=== PATIENT | female | born 1930 | race Caucasian/White ===

== ENCOUNTER → 2016-10-16 10:01 | Outpatient (CLI) | payer MEDICARE, OTHER ==
[2014-09-04 16:39] VITALS: BMI 26.1
[~2016-10-16 10:01] MED LIST: ACETAMINOPHEN325 MG PO; ACIDOPHILUS LAC1 CAP OR; ASCORBIC ACID500 MG PO; ATIVAN0.5 MG PO; CALTRATE 600 M600 M1 PO; CRANBERRY475 MG OR; LOTENSIN40 MG PO; LUTEIN20 MG PO; MECLIZINE HCL25 MG PO; METAMUCIL PACKE1 PKT PO; MIRALAX17 GM PO; MULTIPLE VITAMI1 TA1 PO; PRILOSEC20 MG PO; PROTONIX40 MG PO; SYNTHROID75 MCG PO; VITAMIN D2000 UNIT PO; VYTORIN 10-40 M1 TAB PO; ZETIA10 MG PO; ZOCOR40 MG PO
== END | disposition home or self-care (01) ==
LOC: D.CT 10:00
DX: R19.7 Diarrhea, unspecified (principal); K92.1 Melena

== ENCOUNTER 2016-10-28 07:50 | Day surgery (SDC) | payer MEDICARE, OTHER ==
[~2016-10-28] VITALS: Ht 162.6 cm; Wt 66.8 kg
[2016-10-28] MEDS ORDERED: SYNTHROID112 MCG PO (08:23)
[2016-10-28] MEDS ORDERED: ZESTRIL40 MG PO (08:24)
[2016-10-28] MEDS ORDERED: ZOCOR40 MG PO (08:24)
[2016-10-28 08:28] VITALS: BP 153/79; Ht 162.6 cm; Wt 66.8 kg
[2016-10-28 08:41] LABS: BASOPHILS 0.4 % (0-2); EOSINOPHILS 1.6 % (0-7); HEMATOCRIT 39.2 % (36.0-48.0); HEMOGLOBIN 12.6 g/dL (12-16); IMMATURE GRANULOCYTES 0.3 % (0-5); LYMPHOCYTES 17.6 % (15-50); MCH 28.1 pg (26.0-34.0); MCHC 32.1 g/dL (31.0-37.0); MCV 87.5 fL (80.0-100.0); MONOCYTES 9.7 % (2-11); NEUTROPHILS 70.4 % (40-80); RBC 4.48 10x6/uL (4.00-5.40); RDW 14.8 % (11.5-14.5); WBC 7.5 10x3/uL (4.8-10.8)
[2016-10-28 08:44] LABS: PLATELET COUNT 225 10x3/uL (130-400)
[2016-10-28 08:50] LABS: CALC OSMOLALITY 283 mosm/kg (275-300); CALCIUM 8.4 mg/dL (8.5-10.1); CARBON DIOXIDE 31.5 mmol/L (21.0-32.0); CHLORIDE - SERUM 104 mmol/L (98-107); CREATININE - SERUM 0.7 mg/dL (0.6-1.3); GLUCOSE 95 mg/dL (74-106); POTASSIUM - SERUM 3.3 mmol/L (3.5-5.1); SODIUM 143 mmol/L (136-145); UREA NITROGEN 11 mg/dL (7-18); eGFR NON AFRICAN AMERICAN 83 mL/min (90-120)
[2016-10-28] MEDS ORDERED: LIALDA1.2 G PO (12:33)
[2016-10-28] MEDS ORDERED: ROWASA 4 G4 G/60 ML/ RC (12:33)
--- NOTE | 2016-10-28 17:27 | NUR ---
1150 SERVED FULL LIQUID DIET. Fabien ROMO R.N.
--- NOTE | 2016-10-28 17:29 | NUR ---
1245 DRESSED, AWAKE, & ALERT. GVIEN DISCHARGE INFORMATION INCLUDING RX X'S 2: STACIA & KEIRA, MED REC., SHEET LISTING NSAIDS TO AVOID, & [facility] D/C INSTRUCTIONS SHEET POST ENDOSCOPIC PROCEDURES. PT VOICED UNDERSTANDING. TO PRIVATE CAR PER WHEELCHAIR BY VOLUNTEER. HOME WITH DAUGHTER, MALINA AN. Fabien ROMO R.N.
--- NOTE | 2016-10-31 13:06 | OP ---
PATIENT NAME: DENI HENRY MEDICAL RECORD: [id number] :[birth year] LOCATION:[facility] ADMISSION DATE: SURGEON: SOLEDAD GARCIA DO OPERATION DATE: 10/28/16 DATE OF OPERATION: 10/28/2016 PROCEDURE: Colonoscopy with biopsies. INDICATIONS FOR PROCEDURE: Change in bowel habits, hemorrhoids, hematochezia. SCOPE: [employer] video pediatric colonoscope. MEDICATIONS: Propofol 300 mg IV per anesthesia. ESTIMATED BLOOD LOSS: Less than 2 mL. COMPLICATIONS: None. FINDINGS: Informed consent was given. The patient was made comfortable with the above medication. After reaching an adequate level of sedation by slow IV push, the patient was placed on her left side. A digital rectal examination was performed and was normal. The endoscope was then advanced under direct visualization through the rectum to the cecum with visualization of the appendiceal orifice and ileocecal valve. The scope was slowly withdrawn and the mucosa was carefully examined. The prep quality was fair. There was evidence of moderate diverticulosis involving the sigmoid colon. The patient also had colitis present from 0-25 cm extending up into the sigmoid colon. This consisted of erythema, granularity, ulcerations, and loss of vascular pattern. Appearances were consistent with ulcerative colitis. Multiple biopsies were taken from this entire segment to send for pathology for confirmation of the patient diagnosis. Retroflexion was performed in the rectum with small nonbleeding internal hemorrhoids visualized. The scope was completely withdrawn from the patient. The patient tolerated the procedure well and there were no complications. IMPRESSION: 1. Colitis from 0-25 cm with appearances consistent with ulcerative colitis, biopsies taken. 2. Moderate diverticulosis of the sigmoid colon. 3. Small, nonbleeding internal hemorrhoids. PLAN AND RECOMMENDATIONS: 1. Discharge home when recovery parameters are met. 2. Follow up biopsy specimen results. 3. High-fiber diet. 4. Continue current medications. 5. Start Rowasa enemas 4 g per rectum q.h.s. 6. Start an oral sulfasalazine and mesalamine formulation. I will give a prescription today for Lialda and this may be changed based on insurance coverage. 7. Follow up in GI clinic in 4 weeks so that symptoms may be reviewed and medications can be titrated or changed as needed. TRANSINT:[id number] Voice Confirmation ID: [id number] DOCUMENT ID: [id number] OPERATIVE REPORT [id number] DENI HENRY NATHAN A DO at 1306 CC: [id number] DICTATION DATE: 10/28/16 1048 [place]: 10/28/16 1258 [facility] 10/28/16 [facility] [address] [place] [address]
== END 2016-10-28 12:45 | disposition home or self-care (01) ==
LOC: D.OPS 07:50
PROVIDERS: Anesthesiology
DX: R19.4 Change in bowel habit (principal); K52.9 Noninfective gastroenteritis and colitis, unspecified; K57.30 Diverticulosis of large intestine without perforation or abscess without bleeding; K64.8 Other hemorrhoids; I10 Essential (primary) hypertension; Z01.812 Encounter for preprocedural laboratory examination